=== PATIENT | female | born 1980 | race Caucasian/White ===

== ENCOUNTER 2022-05-05 09:13 | Outpatient (CLI) | payer OTHER, SELFPAY ==
[2022-05-05 14:41] LABS: Chloride* 107 mmol/L (96-114); Potassium* 4.4 mmol/L (3.6-5.1); Sodium* 140 mmol/L (135-149)
[2022-05-05 14:43] LABS: Bilirubin Total* 0.6 mg/dL (0.1-1.5); Carbon Dioxide* 28 mmol/L (20-32); Cholesterol* 117 mg/dL (90-199); Estimated Glomerular Filt Rate 72 ml/min
[2022-05-05 14:44] LABS: Alanine Aminotransferase* 18 U/L (4-35); Alkaline Phosphatase* 39 U/L (40-150); Aspartate Amino Transferase* 25 U/L (12-35); Blood Urea Nitrogen* 14 mg/dL (5-24); Calcium* 9.1 mg/dL (8.4-10.6); Glucose* 91 mg/dL (60-115); Total Protein* 7.2 g/dL (6.0-8.3); Triglycerides* 77 mg/dL (40-149)
[2022-05-05 14:45] LABS: HDL Cholesterol* 50 mg/dL (>=50); LDL Cholesterol Calculated 52 mg/dL (<100)
[2022-05-05 14:58] LABS: Albumin* 4.4 g/dL (3.3-5.0)
== END 2022-05-05 09:14 | disposition home or self-care (01) ==
PROVIDERS: PCP Physician Assistant Medical; Visit Provider Family Medicine
DX: Z01.419 Encounter for gynecological examination (general) (routine) without abnormal findings (principal); Z13.6 Encounter for screening for cardiovascular disorders
CPT/HCPCS: 80053; 80061

== ENCOUNTER 2022-07-06 07:43 | Outpatient (CLI) | payer OTHER, SELFPAY ==
--- NOTE | 2022-07-06 08:15 | CRLHL7_ITS ---
For Patients: As a result of the Century Cures Act, medical imaging exams and procedure reports are released immediately into your electronic medical record. You may view this report before your referring provider. If you have questions, please contact your health care provider. BILATERAL SCREENING MAMMOGRAM WITH COMPUTER-AIDED DETECTION AND TOMOSYNTHESIS TECHNIQUE: CC and MLO views were obtained. These mammographic images have been obtained using full-field digital technique. These mammographic images were interpreted with the benefit of computer-aided detection. Breast Tomosynthesis was used in this interpretation. COMPARISON FILM: 06/23/21, 06/03/20. FINDINGS: The breasts are extremely dense, which lowers the sensitivity of mammography IMPRESSION: There is no radiographic evidence for malignancy. ASSESSMENT: BI-RADS Category 1: Negative RECOMMENDATION: Routine screening mammogram in 1 year. A lay language report of this examination will be provided to the patient. Edgar Porter M.D. Diagnostic/Nuclear Medicine Radiologist [email or web address] DANYELL/Dictated by: Edgar Porter MD @ 07/06/2022 8:45:00 AM (Electronically Signed)
== END 2022-07-06 07:44 | disposition home or self-care (01) ==
LOC: MAMMO 07:44
PROVIDERS: PCP Physician Assistant Medical; Visit Provider Physician Assistant Medical
DX: Z12.31 Encounter for screening mammogram for malignant neoplasm of breast (principal); R92.2 Inconclusive mammogram
CPT/HCPCS: 77063; 77067

== ENCOUNTER 2023-07-12 07:53 | Outpatient (CLI) | payer BC, SELFPAY ==
--- NOTE | 2023-07-12 08:15 | MM_ITS ---
Patient: NEERU WAN Facility:?[facility] Patient ID:?[id number] Site Patient ID:?[id number]. Site :?[id number] Study:?XRay-Breast Bilateral 3D W/CAD-07/12/2023 8:33:19 AM Ordering Physician:?Jocelyne Roman Final Report: BILATERAL SCREENING MAMMOGRAM WITH COMPUTER-AIDED DETECTION AND TOMOSYNTHESIS TECHNIQUE: CC and MLO views were obtained. These mammographic images have been obtained using full-field digital technique. These mammographic images were interpreted with the benefit of computer-aided detection. Breast Tomosynthesis was used in this interpretation. COMPARISON FILM: 07/06/22, 06/23/21, 06/03/20. FINDINGS: The breasts are extremely dense, which lowers the sensitivity of mammography. IMPRESSION: There is no radiographic evidence for malignancy. ASSESSMENT: BI-RADS Category 1: Negative RECOMMENDATION: Routine screening mammogram in 1 year. A lay language report of this examination will be provided to the patient. Hal Lowery M.D. Diagnostic Radiologist [email or web address] DSM/sp R& Transcribed: 5:42 p.m. SP/Dictated by: Hal Lowery MD @ 07/12/2023 1:03:00 PM Signed by:?Hal Lowery MD @07/13/2023 5:41:00 AM (Electronic Signature)
== END 2023-07-12 07:54 | disposition home or self-care (01) ==
LOC: MAMMO 07:53
PROVIDERS: PCP Physician Assistant Medical; Visit Provider Physician Assistant Medical
DX: Z12.31 Encounter for screening mammogram for malignant neoplasm of breast (principal); R92.2 Inconclusive mammogram
CPT/HCPCS: 77063; 77067

== ENCOUNTER 2024-07-18 15:35 | Outpatient (CLI) | payer BC, SELFPAY ==
--- NOTE | 2024-07-18 15:40 | CRLHL7_ITS ---
For Patients: As a result of the Century Cures Act, medical imaging exams and procedure reports are released immediately into your electronic medical record. You may view this report before your referring provider. If you have questions, please contact your health care provider. BILATERAL SCREENING MAMMOGRAM WITH COMPUTER-AIDED DETECTION AND TOMOSYNTHESIS TECHNIQUE: CC and MLO views were obtained. These mammographic images have been obtained using full-field digital technique. These mammographic images were interpreted with the benefit of computer-aided detection. Breast tomosynthesis was used in this interpretation. COMPARISON FILM: 07/12/23, 07/06/22, 06/23/21. FINDINGS: The breasts are heterogeneously dense, which may obscure small masses. IMPRESSION: There is no radiographic evidence for malignancy. ASSESSMENT: BI-RADS Category 1: Negative RECOMMENDATION: Routine screening mammogram in 1 year. A lay language report of this examination will be provided to the patient. HAL PERALTA M.D. Diagnostic Radiologist [email or web address] RASHMI/donavan Transcribed: 07/19/2024, 1:[address]/Dictated by: Hal Peralta MD @ 07/19/2024 9:49:00 AM (Electronically Signed)
== END 2024-07-18 15:36 | disposition home or self-care (01) ==
LOC: MAMMO 15:36
PROVIDERS: PCP Physician Assistant Medical; Visit Provider Physician Assistant Medical
DX: Z12.31 Encounter for screening mammogram for malignant neoplasm of breast (principal); R92.333 Mammographic heterogeneous density, bilateral breasts
CPT/HCPCS: 77063; 77067